=== PATIENT | female | born 1985 ===

== ENCOUNTER 2020-04-29 01:44 | Emergency (ER) | payer BC, OTHER ==
[~2020-04-29] VITALS: Ht 172.7 cm; Wt 78.6 kg
[2020-04-29 01:46] VITALS: BP 123/90
== END 2020-04-29 02:44 ==
LOC: ER 01:45
DX: S00.31XA Abrasion of nose, initial encounter (principal); S80.812A Abrasion, left lower leg, initial encounter; S80.811A Abrasion, right lower leg, initial encounter; M95.2 Other acquired deformity of head; V87.7XXA Person injured in collision between other specified motor vehicles (traffic), initial encounter; Y93.89 Activity, other specified; Y92.410 Unspecified street and highway as the place of occurrence of the external cause; Y99.8 Other external cause status
CPT/HCPCS: 70450; 72125; 99285